=== PATIENT | female | born 1985 | race Caucasian/White ===

== ENCOUNTER 2019-03-29 12:17 | Emergency (ER) | payer OTHER ==
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
== END 2019-03-29 13:39 | disposition home or self-care (01) ==
LOC: UCCORT 12:17
DX: R51 Headache (principal); J30.9 Allergic rhinitis, unspecified; H92.02 Otalgia, left ear
CPT/HCPCS: 70450; 99202; G0463